=== PATIENT | male | born 1960 | race Caucasian/White ===

== ENCOUNTER 2022-04-23 10:51 | Outpatient (CLI) | payer OTHER ==
--- NOTE | 2022-04-23 12:18 | XRay Report ---
XR knee 1-2V RT INDICATION / CLINICAL INFORMATION: RIGHT KNEE INJURY. COMPARISON: None available. FINDINGS: BONES/JOINT(S): No acute fracture or subluxation. Previous internal fixation in the proximal tibia. A dvanced tricompartmental osteoarthritis. SOFT TISSUES: No significant abnormality. ADDITIONAL FINDINGS: None. Signer Name: Chris Cole MD Signed: 04/23/2022 12:14 PM Workstation Name: [id number]
== END 2022-04-23 10:52 | disposition home or self-care (01) ==
LOC: XRAY 10:51
PROVIDERS: ATTEND Family Medicine
DX: S89.91XA Unspecified injury of right lower leg, initial encounter (principal); M17.11 Unilateral primary osteoarthritis, right knee; X58.XXXA Exposure to other specified factors, initial encounter; Y93.89 Activity, other specified; Y92.89 Other specified places as the place of occurrence of the external cause; Y99.8 Other external cause status